=== PATIENT | female | born 1950 | race Native Hawaiian/Other Pacific Islander ===

== ENCOUNTER 2021-12-21 11:03 | Outpatient (CLI) | payer OTHER ==
[~2021-12-21 11:03] MED LIST: METO50TA27 PO
[2021-12-21 11:42] LABS: POTASSIUM 4.4 mmol/L (3.6-5.2)
[2021-12-21 12:37] LABS: PLATELET COUNT 190 K/uL (152-353)
== END 2021-12-21 19:28 | disposition home or self-care (01) ==
LOC: LABW 11:03
PROVIDERS: ATTEND Nurse Practitioner Family
DX: Z79.899 Other long term (current) drug therapy (principal); R53.82 Chronic fatigue, unspecified
CPT/HCPCS: 36415; 80053; 80074; 85027; 86480

== ENCOUNTER 2022-02-02 12:11 | Outpatient (CLI) | payer OTHER | END 2022-02-02 19:04 | disposition home or self-care (01) | LOC: RAD 12:11 | PROVIDERS: ATTEND Nurse Practitioner Family | DX: L40.0 Psoriasis vulgaris (principal); Z11.1 Encounter for screening for respiratory tuberculosis ==